=== PATIENT | female | born 1940 | race Two or more races ===

== ENCOUNTER → 2017-12-08 | Emergency (ER) | payer OTHER ==
[~2017-12-08] VITALS: Ht 149.9 cm; Wt 81.6 kg
[~2017-12-08] MED LIST: AMLODIPINE BESYL5 MG; ANTIVERT 12.5MG TAB PO; ANTIVERT/2525 MG; ANTIVERT25 M1; AZITHROMYCIN250 MG PO; BACTROBAN OINT TP; BUDESONIDE0.5 MG/2 M IH; COUMADIN3 MG PO; COUMAdin PO; COZAAR50 MG; COZAAR50 MG PO; Carafate PO; Cozaar PO; DECADRON P4 MG/ML-1M; DOLOGEN CAPLET1 TAB; DRAMAMINE LESS25 MG; DRAMAMINE LESS25 MG PO; ETODOLAC200 MG; FUROSEMIDE20 MG PO; GUAIFENESIN AC C5 ML PO; Glucophage PO; HUMIBID DM TABLET SA PO; IOPHEN DM-100 MG/5 M PO; Isordil 10MG TAB PO; LASIX20 MG; LASIX20 MG PO; LEVAQUIN500 MG PO; LEVOTHYROXINE25 MCG PO; LORazepam 1MG TAB PO; Lantus 1000 U/10 ML SUBCUTANEO; Lasix 20MG TAB PO; MECLIZINE 25 MG PO; MECLIZINE HCL25 MG PO; MEDROL DOSE PACK PO; MEDROLPACK PO; METFORMIN HCL500 M2 PO; METFORMIN HCL500 MG; METFORMIN HCL850 MG; METFORMIN HCL850 MG PO; NORVASC 5MG TAB PO; NORVASC5 MG; NORVASC5 MG PO; PEPCID20 MG PO; PREDNISONE20 MG PO; PULMICORT180 MCG/AE; PULMICORT180 MCG/AE IH; Pepcid 20 MG TABLET PO; Proventil 0.083% 2.5MG/3ML AMPUL.NEB. IH; SINGULAIR 10MG10 MG PO; SINGULAIR10 MG; SYMBICORT 16010.2 GM IH; SYNTHROID50 MCG; Singulair 10MG PO; Synthroid PO; TESSALON PERLE100 M1 PO; TESSALON PERLE100 MG PO; ULTRAM50 MG PO; VENTOLIN HFA18 GM IH; VENTOLIN17 GM; XOPENEX CO1.25 MG/0. IH; XOPENEX0.63 MG/3 IH; Xopenex 1.25 MG/3 ML SOLUTION IH; ZITHROMAX500 MG PO; ZOCOR PO; ZOCOR20 MG
== END | disposition home or self-care (01) ==
LOC: ER 19:29
DX: J45.901 Unspecified asthma with (acute) exacerbation (principal); J11.1 Influenza due to unidentified influenza virus with other respiratory manifestations

== ENCOUNTER 2017-12-21 13:20 | Emergency (ER) | payer OTHER ==
[~2017-12-21] VITALS: Ht 152.4 cm; Wt 72.6 kg
== END 2017-12-21 15:31 | disposition home or self-care (01) ==
LOC: ER 13:20
DX: Z48.02 Encounter for removal of sutures (principal)

== ENCOUNTER 2018-03-18 17:25 | Emergency (ER) | payer OTHER ==
[~2018-03-18] VITALS: Ht 157.5 cm; Wt 81.6 kg
== END 2018-03-18 20:48 | disposition home or self-care (01) ==
LOC: ER 17:25
DX: R42 Dizziness and giddiness (principal); R11.2 Nausea with vomiting, unspecified; T45.511A Poisoning by anticoagulants, accidental (unintentional), initial encounter; Y92.89 Other specified places as the place of occurrence of the external cause

== ENCOUNTER 2018-06-20 10:56 | Outpatient (CLI) | payer OTHER | END 2018-06-20 11:00 | disposition home or self-care (01) | LOC: T RESPIRAT 10:56 → LAB 10:56 → T RESPIRAT 11:00 | DX: I66.8 Occlusion and stenosis of other cerebral arteries (principal); I67.82 Cerebral ischemia; R09.02 Hypoxemia; J44.1 Chronic obstructive pulmonary disease with (acute) exacerbation; E11.51 Type 2 diabetes mellitus with diabetic peripheral angiopathy without gangrene; E08.40 Diabetes mellitus due to underlying condition with diabetic neuropathy, unspecified; Z79.84 Long term (current) use of oral hypoglycemic drugs; I80.02 Phlebitis and thrombophlebitis of superficial vessels of left lower extremity; Z79.01 Long term (current) use of anticoagulants ==

== ENCOUNTER 2018-11-27 21:00 | Emergency (ER) | payer OTHER ==
[~2018-11-27] VITALS: Ht 154.9 cm; Wt 63.5 kg
[2018-11-28] MEDS ORDERED: CELEBREX100 MG PO (03:52)
[2018-11-28] MEDS ORDERED: ORPHENADRINE C100 MG PO (03:52)
== END 2018-11-28 04:05 ==
LOC: ER 21:00
DX: S00.83XA Contusion of other part of head, initial encounter (principal); S10.83XA Contusion of other specified part of neck, initial encounter; W18.09XA Striking against other object with subsequent fall, initial encounter; Y93.89 Activity, other specified; Y92.098 Other place in other non-institutional residence as the place of occurrence of the external cause; Y99.8 Other external cause status

== ENCOUNTER → 2019-02-14 | Emergency (ER) | payer OTHER ==
[~2019-02-14] VITALS: Ht 152.4 cm; Wt 81.6 kg
[~2019-02-14] MED LIST changes: +CELEBREX100 MG PO; +ORPHENADRINE C100 MG PO
== END | disposition home or self-care (01) ==
LOC: ER 21:45
DX: H11.32 Conjunctival hemorrhage, left eye (principal)

== ENCOUNTER 2020-05-28 08:05 | Emergency (ER) | payer OTHER ==
[~2020-05-28] VITALS: Ht 160 cm; Wt 77.1 kg
[2020-05-28] MEDS ORDERED: MONTELUKAST SODI4 M1 (08:19)
== END 2020-05-28 12:30 | disposition home or self-care (01) ==
LOC: ER 08:05
DX: S01.82XA Laceration with foreign body of other part of head, initial encounter (principal); W01.198A Fall on same level from slipping, tripping and stumbling with subsequent striking against other object, initial encounter; Y93.89 Activity, other specified; Y92.018 Other place in single-family (private) house as the place of occurrence of the external cause; Y99.8 Other external cause status

== ENCOUNTER 2020-06-04 16:34 | Inpatient (IN) | payer OTHER ==
[~2020-06-04] VITALS: Ht 162.6 cm; Wt 74.8 kg
[~2020-06-04 16:34] MED LIST changes: +MONTELUKAST SODI4 M1
--- NOTE | 2020-06-04 17:03 | NUR ---
PTE SE RECIBE POR SUTURE REMOVAL Y DOLOR EN LA ANGELICA HUMMELDA REFIERE PTE Y FAMILIAR.
--- NOTE | 2020-06-04 17:54 | NUR ---
BAJO MEDIDAS ASEPTICAS AL PACIENTE SE LE CANALIZA Y SE LE ADMINISTRA CIPRO IV ARSENIO ORDEN MEDICA.
[2020-06-14] MEDS ORDERED: Lantus 1000 UNITS/10 SUBCUTANEO (17:33)
[2020-06-14] MEDS ORDERED: LOSARTAN POTASS50 MG PO (17:33)
[2020-06-14] MEDS ORDERED: LIPITOR40 MG PO (17:33)
[2020-06-14] MEDS ORDERED: AMLODIPINE BESYL5 MG PO (17:33)
[2020-06-14] MEDS ORDERED: IPRATROPIU0.2 MG/1 M IH (17:33)
[2020-06-14] MEDS ORDERED: XOPENEX0.63 MG/3 IH (17:33)
[2020-06-14] MEDS ORDERED: INTEGRA F CAPS1 EACH PO (17:33)
[2020-06-14] MEDS ORDERED: LEVOTHYROXINE25 MCG PO (17:33)
[2020-06-14] MEDS ORDERED: COUMADIN3 MG PO (17:34)
== END 2020-06-14 18:38 | disposition home health service (06) | DRG 603 ==
LOC: ER 16:34 → SEC-K 06-05 12:04 → MEDI 06-05 12:04
PROVIDERS: ADMIT Internal Medicine; ATTEND Internal Medicine
PROC: 8E0ZXY6 Isolation (ICD-10-PCS; principal; 2020-06-06)
PROC: B44HZZZ Ultrasonography of Bilateral Lower Extremity Arteries (ICD-10-PCS; 2020-06-09)
PROC: B43 Imaging, Lower Arteries, Magnetic Resonance Imaging (MRI) (ICD-10-PCS; 2020-06-09)
PROC: 02HV33Z Insertion of Infusion Device into Superior Vena Cava, Percutaneous Approach (ICD-10-PCS; 2020-06-10)
PROC: 4A033R1 Measurement of Arterial Saturation, Peripheral, Percutaneous Approach (ICD-10-PCS; 2020-06-10)
DX: L03.116 Cellulitis of left lower limb (principal); N17.9 Acute kidney failure, unspecified; J45.901 Unspecified asthma with (acute) exacerbation; J44.1 Chronic obstructive pulmonary disease with (acute) exacerbation; I10 Essential (primary) hypertension; L02.416 Cutaneous abscess of left lower limb; E11.65 Type 2 diabetes mellitus with hyperglycemia; E03.9 Hypothyroidism, unspecified; E86.0 Dehydration; I48.0 Paroxysmal atrial fibrillation; F03.90 Unspecified dementia, unspecified severity, without behavioral disturbance, psychotic disturbance, mood disturbance, and anxiety; W18.30XD Fall on same level, unspecified, subsequent encounter; S81.812D Laceration without foreign body, left lower leg, subsequent encounter; B95.2 Enterococcus as the cause of diseases classified elsewhere; Z79.01 Long term (current) use of anticoagulants; Z79.4 Long term (current) use of insulin; D51.9 Vitamin B12 deficiency anemia, unspecified; I87.2 Venous insufficiency (chronic) (peripheral); Z48.02 Encounter for removal of sutures

== ENCOUNTER 2021-02-03 10:28 | Inpatient (IN) | payer OTHER ==
[~2021-02-03] VITALS: Ht 157.5 cm; Wt 74.8 kg
[~2021-02-03 10:28] MED LIST changes: +AMLODIPINE BESYL5 MG PO; +INTEGRA F CAPS1 EACH PO; +IPRATROPIU0.2 MG/1 M IH; +LIPITOR40 MG PO; +LOSARTAN POTASS50 MG PO; +Lantus 1000 UNITS/10 SUBCUTANEO
[2021-02-05] MEDS ORDERED: CENTRUM SILVER1 EAC3 (08:06)
[2021-02-05] MEDS ORDERED: ANTI-DIARRHEAL2 M1 (08:06)
[2021-02-05] MEDS ORDERED: TOLNAFTATE (08:06)
[2021-02-05] MEDS ORDERED: KETOROLAC TROMET5 M1 (08:07)
[2021-02-05] MEDS ORDERED: PREDNISOLONE ACE5 ML (08:07)
== END 2021-02-09 19:30 | disposition home or self-care (01) | DRG 191 ==
LOC: ER 10:28 → MEDI 02-04 09:57
PROVIDERS: ADMIT Internal Medicine; ATTEND Internal Medicine
PROC: 3E0F73Z Introduction of Anti-inflammatory into Respiratory Tract, Via Natural or Artificial Opening (ICD-10-PCS; principal; 2021-02-04)
PROC: 3E0F7SF Introduction of Other Gas into Respiratory Tract, Via Natural or Artificial Opening (ICD-10-PCS; 2021-02-04)
DX: J44.1 Chronic obstructive pulmonary disease with (acute) exacerbation (principal); J45.901 Unspecified asthma with (acute) exacerbation; I10 Essential (primary) hypertension; E03.9 Hypothyroidism, unspecified; E78.5 Hyperlipidemia, unspecified; Z20.822 Contact with and (suspected) exposure to COVID-19

== ENCOUNTER 2022-04-09 18:01 | Inpatient (IN) | payer OTHER ==
[~2022-04-09] VITALS: Ht 152.4 cm; Wt 58.1 kg
[~2022-04-09 18:01] MED LIST changes: +ANTI-DIARRHEAL2 M1; +CENTRUM SILVER1 EAC3; +KETOROLAC TROMET5 M1; +PREDNISOLONE ACE5 ML; +TOLNAFTATE
--- NOTE | 2022-04-09 19:08 | NUR ---
SE RECIBE PTE FEMENINA ALERTA Y ORIENTADA X3,FAMILIAR REFIERE LISA LA ENCUENTRA EN EL PISO POR CAIDA,PTE SE OBSERVA CON DEBILIDAD Y FAMILIAR REFIERE LA ENCUENTRA DEBIL EN OCASIONES.
--- NOTE | 2022-04-09 19:22 | NUR ---
PACIENTE EVALUADA POR EL DR. ALVARADO QUIEN ORDENA TX MEDICO. SE ORIENTA A PACIENTE Y DFAMILIAR SOBRE EL MISMO REFIERE ENTENDER Y RN MOTLEY EJECUTA ORDENES MEDICAS. SE LE ENTREGAN CONTRASTES ORALES PARA REALIZACION DE CT ABDOMINAL Y PELVICO.
--- NOTE | 2022-04-09 21:06 | NUR ---
SE LLAMA A BANCO DE SIVAKUMAR Y SE VERIFICA CON SR MATA SI PACIENTE TIENE RECORD EN BANCO DE SIVAKUMAR EL CUAL INDICA QUE NO TIENE RECORD AL MOMENTO. FAMILIAR DE PACIENTE ES ORIENTADO POR DR. DIAZ SOBRE ORDEN DE TRANFUSIONES DE SIVAKUMAR SUMMERS IMPORTANCIA FAMILIAR DE PACIENTE REFIERE NO SABE SI EL Y SUMMERS NELSON ACEPTARIAN QUE SE LE TANSFUNDA A SUMMERS MADRE. DR. ALVARADO REORIENTA A FAMILIAR SOBRE IMPORTANCIA Y SE LE ORIENTA TAMBIEN QUE HASTA QUE ELLOS NO DECIDAN SI ACEPTAN TRANFUSION NO SE PUEDE REQUISAR LAS UNIDADES Y EL PROCESO DE TARDARIA O DEMORARIA MAS.
--- NOTE | 2022-04-09 21:59 | NUR ---
2135- SE COLECTAN MUESTRAS DE SIVAKUMAR PARA REQUISAR 2 UNIDADES DE PRCB A PACIENTE ARSENIO ORDEN MEDICA. SE LLAMA A BANCO DE SIVAKUMAR Y SE NOTIFICA A SR MATA QUE SE ENTREGAN MUESTRAS CON REQUISICION EN EL LABORAYORIO DE LA INSTITUCION EL MISMO REFIERE QUE PEREZ YA VIENE EN MEMO A RECOGER MUESTRAS.
== END 2022-04-27 20:00 | disposition home or self-care (01) | DRG 811 ==
LOC: ER 18:01 → ICU-2 23:06 → MEDI 04-12 13:00
PROVIDERS: ADMIT Internal Medicine; ATTEND Internal Medicine
PROC: 30233N1 Transfusion of Nonautologous Red Blood Cells into Peripheral Vein, Percutaneous Approach (ICD-10-PCS; principal; 2022-04-10)
PROC: 4A12X4Z Monitoring of Cardiac Electrical Activity, External Approach (ICD-10-PCS; 2022-04-12)
PROC: 02HV33Z Insertion of Infusion Device into Superior Vena Cava, Percutaneous Approach (ICD-10-PCS; 2022-04-13)
PROC: 0DB98ZX Excision of Duodenum, Via Natural or Artificial Opening Endoscopic, Diagnostic (ICD-10-PCS; 2022-04-23)
PROC: 0DB78ZX Excision of Stomach, Pylorus, Via Natural or Artificial Opening Endoscopic, Diagnostic (ICD-10-PCS; 2022-04-23)
DX: D62 Acute posthemorrhagic anemia (principal); R65.11 Systemic inflammatory response syndrome (SIRS) of non-infectious origin with acute organ dysfunction; K92.1 Melena; N17.8 Other acute kidney failure; E87.0 Hyperosmolality and hypernatremia; J44.1 Chronic obstructive pulmonary disease with (acute) exacerbation; I82.621 Acute embolism and thrombosis of deep veins of right upper extremity; T45.511A Poisoning by anticoagulants, accidental (unintentional), initial encounter; K29.80 Duodenitis without bleeding; K44.9 Diaphragmatic hernia without obstruction or gangrene; I12.9 Hypertensive chronic kidney disease with stage 1 through stage 4 chronic kidney disease, or unspecified chronic kidney disease; E11.22 Type 2 diabetes mellitus with diabetic chronic kidney disease; N18.9 Chronic kidney disease, unspecified; N20.0 Calculus of kidney; D53.1 Other megaloblastic anemias, not elsewhere classified; I48.91 Unspecified atrial fibrillation; E11.51 Type 2 diabetes mellitus with diabetic peripheral angiopathy without gangrene; G30.8 Other Alzheimer's disease; F02.80 Dementia in other diseases classified elsewhere, unspecified severity, without behavioral disturbance, psychotic disturbance, mood disturbance, and anxiety; Z79.01 Long term (current) use of anticoagulants; Z79.84 Long term (current) use of oral hypoglycemic drugs; R53.81 Other malaise

== ENCOUNTER 2022-05-06 01:46 | Inpatient (IN) | payer OTHER ==
[~2022-05-06] VITALS: Ht 160 cm; Wt 56.7 kg
--- NOTE | 2022-05-06 01:51 | NUR ---
SE RECIBE FEMINA ALERTA Y DESORIENTADA X 3 ESFERAS EN AMBULANCIA Y EN COMPANIA DE FAMILIAR LA CUAL INDICA QUE PTE EN LA TARDE DE SHIV TUVO UNOS EPISODIOS DE VOMITOS Y "DAYANARA OJOS SE LE VIRARON PARA ATRAS" REFIERE QUE LUEGO DE LISA EVENTO PTE SE ENCUENTRA SOMNOLIENTA. SE OBSERVA SONDA URINARIA CON 400ML DE ORINA COLOR AMARILLO INTENSO.
[2022-05-06] MEDS ORDERED: SINGULAIR10 MG (01:54)
[2022-05-06] MEDS ORDERED: PROTONIX40 MG (01:54)
[2022-05-06] MEDS ORDERED: ELIQUIS2.5 MG (01:54)
[2022-05-06] MEDS ORDERED: FLUCONAZOLE150 MG (01:55)
--- NOTE | 2022-05-06 02:43 | NUR ---
PTE EVALUADA POR DR. HORN. SE ORIENTA PTE Y FAMILIAR SOBRE TX A SEGUIR, EL CUAL REFIERE ENTENDER. SE COLECTAN MUESTRAS Y SE CANALIZA PTE UTILIZANDO MEDIDAS ASEPTICAS. SE ADMINISTRAN MEDICAMENTOS ARSENIO ORDEN MEDICA. PTE MANEJADA POR MS Valeriano GANNON
--- NOTE | 2022-05-06 06:47 | NUR ---
SE VACIA ZIEGLER, OUTPUT DE 380ML. SE OBSERVA ORINA AMARILLO OSCURO Y CON OLOR FETIDO.
[2022-05-16] MEDS ORDERED: QUETIAPINE FUMA25 MG PO (16:09)
[2022-05-16] MEDS ORDERED: LOSARTAN POTASS50 MG PO (16:09)
[2022-05-16] MEDS ORDERED: MONTELUKAST SODI4 MG PO (16:09)
[2022-05-16] MEDS ORDERED: LEVOTHYROXINE25 MCG PO (16:09)
== END 2022-05-16 18:29 | disposition home or self-care (01) | DRG 690 ==
LOC: ER 01:46 → MEDJ 11:19 → MEDI 11:19 → MEDJ 05-14 14:39
PROVIDERS: ADMIT Internal Medicine; ATTEND Internal Medicine
PROC: 3E0F7SF Introduction of Other Gas into Respiratory Tract, Via Natural or Artificial Opening (ICD-10-PCS; 2022-05-06)
PROC: B246ZZZ Ultrasonography of Right and Left Heart (ICD-10-PCS; principal; 2022-05-08)
PROC: 02HV33Z Insertion of Infusion Device into Superior Vena Cava, Percutaneous Approach (ICD-10-PCS; 2022-05-08)
PROC: 3E0F7GC Introduction of Other Therapeutic Substance into Respiratory Tract, Via Natural or Artificial Opening (ICD-10-PCS; 2022-05-08)
PROC: B020ZZZ Computerized Tomography (CT Scan) of Brain (ICD-10-PCS; 2022-05-15)
DX: N39.0 Urinary tract infection, site not specified (principal); N17.8 Other acute kidney failure; R78.81 Bacteremia; J90 Pleural effusion, not elsewhere classified; B95.7 Other staphylococcus as the cause of diseases classified elsewhere; E86.0 Dehydration; D50.0 Iron deficiency anemia secondary to blood loss (chronic); E11.22 Type 2 diabetes mellitus with diabetic chronic kidney disease; E11.649 Type 2 diabetes mellitus with hypoglycemia without coma; I12.9 Hypertensive chronic kidney disease with stage 1 through stage 4 chronic kidney disease, or unspecified chronic kidney disease; N18.9 Chronic kidney disease, unspecified; J44.9 Chronic obstructive pulmonary disease, unspecified; E03.8 Other specified hypothyroidism; G93.89 Other specified disorders of brain; G30.1 Alzheimer's disease with late onset; F02.80 Dementia in other diseases classified elsewhere, unspecified severity, without behavioral disturbance, psychotic disturbance, mood disturbance, and anxiety; Z74.01 Bed confinement status; Z79.84 Long term (current) use of oral hypoglycemic drugs